=== PATIENT | female | born 1965 | race Caucasian/White ===

== ENCOUNTER 2017-06-28 08:00 | Outpatient (CLI) | payer OTHER | END 2017-06-28 08:01 | disposition home or self-care (01) | LOC: BICMAMMO 08:00 | PROVIDERS: ATTEND Family Medicine | DX: Z12.31 Encounter for screening mammogram for malignant neoplasm of breast (principal) | CPT/HCPCS: 77067; G0202 ==

== ENCOUNTER 2018-09-18 17:25 | Outpatient (CLI) | payer OTHER | END 2018-09-18 17:26 | disposition home or self-care (01) | LOC: BICMAMMO 17:25 | PROVIDERS: ATTEND Family Medicine | DX: Z12.31 Encounter for screening mammogram for malignant neoplasm of breast (principal); R92.1 Mammographic calcification found on diagnostic imaging of breast | CPT/HCPCS: 77063; 77067 ==

== ENCOUNTER 2018-12-07 10:23 | Day surgery (SDC) | payer OTHER ==
[2018-12-06 11:58] VITALS: BMI 24.1
[2018-12-07] MEDS ORDERED: PROPOFOL 200 MG/20 ML VIAL ONE (16:33)
--- NOTE | 2018-12-07 21:26 | OP ---
DATE OF PROCEDURE: 12/07/2018 PROCEDURE PERFORMED: Colonoscopy. PREPROCEDURE DIAGNOSES: 1. High-risk colon cancer screening. 2. Family history of colon cancer in her father at age 68. POSTPROCEDURE DIAGNOSES: 1. Exam to cecum; good bowel preparation. 2. Scattered diverticula, sigmoid colon. 3. Diffusely redundant colon. 4. Small to medium internal hemorrhoids, not actively bleeding. 5. Otherwise, normal colonoscopy. No polyps seen. DESCRIPTION OF PROCEDURE: Written informed consent was obtained. The patient was brought to the endoscopy suite. Total intravenous anesthesia was administered by Dr. Bishnu Alexis. The patient was placed in the left lateral decubitus position. A digital rectal exam was performed that was unremarkable. A Pentax video colonoscope was inserted through the anal canal and advanced under direct visualization to the cecum. Position in the cecum was verified by clear identification of the appendiceal orifice and the ileocecal valve. The quality of the bowel preparation was good. Each colon segment was examined carefully as the colonoscope was slowly withdrawn from the cecum. Vascular pattern and haustral folds appeared normal. Occasional small diverticular orifices were noted in the sigmoid colon. The colon was diffusely redundant. No polyp or AVM was identified. In the rectum, a retroflexed view demonstrated small to medium internal hemorrhoids that were not actively bleeding. The colon was decompressed as the colonoscope was removed from the patient. She was transferred to the Day Stay surgery area for postprocedure monitoring. There were no immediate complications. RECOMMENDATIONS: 1. High-fiber, low-fat diet. 2. Sitz baths t.i.d. p.r.n. hemorrhoids. 3. Preparation-H cream or suppository b.i.d. p.r.n. hemorrhoids. 4. Resume previous medications. 5. Repeat colonoscopy in 5 years. 6. Follow up in GI clinic as needed. Job ID: [id number]
== END 2018-12-07 15:00 | disposition home or self-care (01) ==
LOC: SDC 10:23
PROVIDERS: ATTEND Internal Medicine Gastroenterology
PROC: 0DJD8ZZ Inspection of Lower Intestinal Tract, Via Natural or Artificial Opening Endoscopic (ICD-10-PCS; principal; 2018-12-07)
DX: Z12.11 Encounter for screening for malignant neoplasm of colon (principal); K57.30 Diverticulosis of large intestine without perforation or abscess without bleeding; K64.8 Other hemorrhoids; Z80.0 Family history of malignant neoplasm of digestive organs; Z79.899 Other long term (current) drug therapy; Z87.891 Personal history of nicotine dependence
CPT/HCPCS: J2704

== ENCOUNTER 2019-09-26 08:18 | Outpatient (CLI) | payer OTHER ==
--- NOTE | 2019-09-26 08:53 | MMO ---
Bilateral MAMMO Bilat Screen [facility]. CLINICAL HISTORY: Patient is 54 years old and is seen for screening. The patient has no family history of breast cancer. The patient has no personal history of cancer. The patient has a history of right Excisional Biopsy more than 10 years ago - benign. VIEWS: The views performed were: bilateral craniocaudal with tomosynthesis and bilateral mediolateral oblique with tomosynthesis. FILMS COMPARED: The present examination has been compared to prior imaging studies performed at [facility] on 06/28/2017 and 09/18/2018, and at [facility] on 06/27/2015. This study has been interpreted with the assistance of computer-aided detection. MAMMOGRAM FINDINGS: The breasts are heterogeneously dense, which could obscure a lesion on mammography. There are no suspicious masses, suspicious calcifications, or new areas of architectural distortion. IMPRESSION: THERE IS NO MAMMOGRAPHIC EVIDENCE OF MALIGNANCY. A ROUTINE FOLLOW-UP MAMMOGRAM IN 1 YEAR IS RECOMMENDED. THE RESULTS OF THIS EXAM WERE SENT TO THE PATIENT. ACR BI-RADS Category 1 - Negative MAMMOGRAPHY NOTE: 1. A negative mammogram report should not delay a biopsy if a dominant of clinically suspicious mass is present. 2. Approximately 10% to 15% of breast cancers are not detected by mammography. 3. Adenosis and dense breasts may obscure an underlying neoplasm. Reported by: FITO POWELL MD Electonically Signed: [id number]
== END 2019-09-26 08:19 | disposition home or self-care (01) ==
LOC: BICMAMMO 08:18
PROVIDERS: ATTEND Family Medicine
DX: Z12.31 Encounter for screening mammogram for malignant neoplasm of breast (principal); Z91.89 Other specified personal risk factors, not elsewhere classified
CPT/HCPCS: 77063; 77067

== ENCOUNTER 2019-09-26 08:51 | Outpatient (CLI) | payer OTHER ==
--- NOTE | 2019-09-26 09:27 | RAD ---
XR Hip Rt 2-3 View HISTORY: Right hip pain, right inguinal pain, right groin pain radiating to the knee FINDINGS: No fracture or dislocation is identified.
== END 2019-09-26 08:52 | disposition home or self-care (01) ==
LOC: BICRAD 08:51
PROVIDERS: ATTEND Family Medicine
DX: R10.31 Right lower quadrant pain (principal)

== ENCOUNTER 2020-10-08 11:24 | Outpatient (CLI) | payer OTHER | END 2020-10-08 11:25 | disposition home or self-care (01) | LOC: BICCT 11:24 | PROVIDERS: ATTEND Family Medicine | DX: Z12.2 Encounter for screening for malignant neoplasm of respiratory organs (principal); Z87.891 Personal history of nicotine dependence | CPT/HCPCS: 71271 ==

== ENCOUNTER 2021-06-23 12:16 | Outpatient (CLI) | payer OTHER | END 2021-06-23 12:17 | disposition home or self-care (01) | LOC: BICULT 12:16 | PROVIDERS: ATTEND Urology | DX: R39.15 Urgency of urination (principal); N95.2 Postmenopausal atrophic vaginitis; N28.1 Cyst of kidney, acquired | CPT/HCPCS: 76770 ==

== ENCOUNTER 2021-11-19 10:15 | Outpatient (CLI) | payer BC | END 2021-11-19 10:16 | disposition home or self-care (01) | LOC: BICMAMMO 10:15 | PROVIDERS: ATTEND Nurse Practitioner Family | DX: Z12.31 Encounter for screening mammogram for malignant neoplasm of breast (principal); Z12.2 Encounter for screening for malignant neoplasm of respiratory organs; F17.200 Nicotine dependence, unspecified, uncomplicated; Z91.89 Other specified personal risk factors, not elsewhere classified | CPT/HCPCS: 71271; 77063; 77067 ==